=== PATIENT | female | born 1945 | race Caucasian/White ===

== ENCOUNTER 2025-03-17 16:57 | Inpatient (IN) | payer MEDICARE, OTHER, SELFPAY ==
[2025-03-16] VITALS (7 sets, daily range): BP systolic 84–106; BP diastolic 56–71; BMI 29.5; BMI 28.9
[2025-03-16 13:05] LABS: Hematocrit 35.9 % (37.0-47.0); Hemoglobin 11.5 g/dL (12.0-16.0); Mean Corp Hgb Conc. 32.0 g/dL (33.0-37.0); Mean Corpuscular Volume 91.8 fL (81.0-99.0); Nucleated Red Blood Cells % 0 %; Platelet Count 256 10^3/uL (130-400); Red Cell Dist. Width 14.9 % (11.5-14.5)
[2025-03-16 13:29] LABS: ALT (SGPT) 18 U/L (0-35); AST (SGOT) 24 U/L (14-36); Albumin 4.6 g/dl (3.5-5.0); Alkaline Phosphatase 53 U/L (38-126); Blood Urea Nitrogen 47 mg/dl (7-17); Calcium 9.1 mg/dl (8.4-10.2); Carbon Dioxide 20 mmol/L (22-30); Chloride 109 mmol/L (98-107); Glucose 102 mg/dl (70-99); Potassium 5.2 mmol/L (3.5-5.1); Sodium 137 mmol/L (135-145); Total Protein 6.8 g/dl (6.3-8.2); eGFR 34.79
[2025-03-16 13:30] LABS: Troponin I < 0.012 ng/ml
--- NOTE | 2025-03-16 14:54 | ED.GENMED ---
History of Present Illness
General
Chief Complaint: Breathing Problem
Time Seen by Provider: 03/16/25 13:28
History of Present Illness
History of Present Illness:
80-year-old female with history of heart failure with reduced ejection fraction, paroxysmal A-fib status post pacemaker presents the emergency department for evaluation of dyspnea on exertion and orthopnea for the past 2 weeks. She uses diuretics
as needed, began taking 20 mg of furosemide daily for the past 7 to 8 days with improvement of symptoms however she continues to have intermittent chest pain and inability to exert herself without severe dyspnea. Reports no leg swelling and no
fever. No coughing. Scheduled for an A-fib ablation next month
Past History
Past History
ED Past Medical History: Arrthythmia, HTN and Hypercholesterolemia
Social History
Tobacco: Non-smoker
Review of Systems
Review of Systems
Allergies reviewed?: Yes
All Other Systems: ROS reviewed and negative except as documented in HPI and ROS
Phy Exam
Physical Exam
Physical Exam:
GEN: Well appearing, NAD, WDWN
HEENT: Oral mucosa moist, no scleral icterus
Cardiac: Regular rate and rhythm, no murmur
Lung: No respiratory distress, no tachypnea, lungs clear to auscultation
MSK: No gross deformity or injuries, no leg edema
Skin: Good color, no pallor or jaundice, no rashes
Neuro: AO x3, moves all extremities freely
Psych: Calm, cooperative
Scores
Heart Failure Risk
Heart Failure Risk Score: Yes
History of Stroke or TIA: No
History of intubation for respiratory distress: No
Heart rate on ED arrival >/= 110: No
SaO2 <90% on arrival on room air: No
HR >/=110 during 3min walk test (or too ill to perform test): Yes
ECG has acute ischemic changes: No
Urea >/=12mmol/L (BUN 33.6mg/dL): Yes
Serum CO2>/=35mmol/L: No
Troponin I or T elevated to VT Level (0.4mg/dL): No
NT-proBNP >/=5,000ng/L (5,000pg/ml): No
HF Risk Score: 3
Admission Status: HIGH RISK 15.9% Consider SNF treatment or admission to hospital
Course
Orders/Labs/Results
Orders:
Orders
03/16/25 12:37
Electrocardiogram (*1) Urgent
Reason for Study: Other
Other Reason for Exam: Respiratory Distress
EKG- Treatment ONCE
03/16/25 13:00
Complete Blood Count/With Diff Urgent
Comprehensive Metabolic Panel Urgent
NT-proBNP Urgent
Troponin I Urgent
03/16/25 13:38
CR Chest - 2 Views Urgent
Comment:
Reason For Exam: SOB
03/16/25 14:53
Furosemide [Lasix] 20 mg IV NOW STA
Abnormal Lab Results
03/16/25
13:00
RBC 3.91 L 10^6/uL
(4.20-5.40)
Hgb 11.5 L g/dL
(12.0-16.0)
Hct 35.9 L %
(37.0-47.0)
MCHC 32.0 L g/dL
(33.0-37.0)
RDW 14.9 H %
(11.5-14.5)
Abs Immat Gran (auto) 0.1 H 10^3/uL
(0-0.05)
Immature Gran % 0.7 H %
(0-0.5)
Lymphocytes % 17.2 L %
(20.5-51.1)
Potassium 5.2 H mmol/L
(3.5-5.1)
Chloride 109 H mmol/L
(98-107)
Carbon Dioxide 20 L mmol/L
(22-30)
BUN 47 H mg/dl
(7-17)
Creatinine 1.5 H mg/dL
(0.6-1.0)
Glucose 102 H mg/dl
(70-99)
03/16/25 13:00
03/16/25 13:00
Vital Signs
Initial and Last Documented VS:
Initial Vital Signs
Temp Pulse Resp BP Pulse Ox
98.2 F 85 16 106/68 98
03/16/25 12:33 03/16/25 12:33 03/16/25 12:33 03/16/25 12:33 03/16/25 12:33
Last Documented Vital Signs
Temp Pulse Resp BP Pulse Ox
98.2 F 85 18 105/64 100
03/16/25 12:33 03/16/25 15:23 03/16/25 14:45 03/16/25 15:23 03/16/25 14:54
MDM/Problems Addressed
MDM/Problems Addressed:
Device interrogation reviewed with rep from [facility], the patient has been frequently in A-fib over the past several weeks most notably a 2-hour run today. This very well may correlate with her bouts of chest pain. And also potentially provoke
her acute CHF. She does not appear grossly volume overloaded by x-ray or clinical exam however BNP is elevated. Abnormal renal function may be a product of cardiorenal syndrome versus overdiuresis. Given that she is hyperkalemic we will trial a
small dose of IV diuretics, the [facility] [employer] device rep plans to see the patient in hospital to adjust device settings and evaluate the frequent bouts of A-fib more. Will admit to the hospitalist service for further management
Comment
Comment:
EKG independently interpreted by me shows a ventricularly paced rhythm
*Pulse Oximetry
SaO2: 100
Oxygen Mode of Delivery: Room air
Patient hypoxic: no
*Critical Care Note
Total Time (30-74mins, 75-104mins- exclusive of procedures): Not Applicable
ED Attending Note
-
Portions of this chart may have been created with voice recognition software.� Occasional wrong word or��sound alike� substitutions may have occurred due to the inherent limitations of voice recognition software.
Discharge Plan
Departure
Patient Disposition: Admit
Date of Disposition: 03/16/25
Time of Disposition: 15:18
Admit to: Telemetry
Admit to doctor: Radhames
Presentation/result/management discussed w/ accepting MD/DO: Hospitalist
Discharge Problem:
Acute heart failure with reduced ejection fraction (HFrEF), Cardiorenal syndrome
Prescriptions:
No Action
cetirizine 10 MG tablet
10 mg PO DAILY
atorvastatin 10 MG tablet
10 mg PO QPM
furosemide 20 MG tablet
20 mg PO DAILYPRN PRN (Reason: fluid)
Xarelto 20 MG tablet
20 mg PO QPM Qty: 0 0RF
sucralfate [Carafate] 100 mg/mL Suspension
10 ml PO HSPRN PRN (Reason: gerd)
omeprazole 40 mg Capsule,Delayed Release(Dr/Ec)
40 mg PO DAILY
spironolactone 25 mg Tablet
25 mg PO QPM
dicyclomine 10 mg Capsule
10 mg PO ACHS
darifenacin 7.5 mg Tablet Extended Release 24 Hr
7.5 mg PO Q48H
Entresto 24-26 mg Tablet
1 tab PO BID
metoprolol succinate 50 MG tablet extended release 24 hr
50 mg PO BID
amiodarone 200 mg Tablet
200 mg PO DAILY
Referrals:
Rochelle Guadarrama MD [Family Provider]
Interventions
Interventions:
*Risk Screen - Suicide Last Done: 03/16/25 12:33
*General Assessment Last Done: 03/16/25 14:41
*Neglect/Abuse Screening Last Done: 03/16/25 14:41
*ED- Fall Risk Assessment Last Done: 03/16/25 14:41
*ED COVID-19 Vaccine History Last Done: 03/16/25 14:41
ED- Cardiac Assessment Last Done: 03/16/25 14:41
ED- Pulmonary Assessment Last Done: 03/16/25 14:41
Discharge Date and Time
Print Language: LUXEMBOURGISH
[2025-03-16] MEDS: LASIX 20 MG IV (15:23)
--- NOTE | 2025-03-16 15:34 | HPS.HSE ---
Family Physician
-
Family Physician: Rochelle Guadarrama
Chief Complaint
-
exertional dyspnea and orthopnea
History of Present Illness
Patient is a 80-year-old female with past medical history significant for paroxysmal atrial fibrillation, HFrEF, hyperlipidemia and GERD who presented to [facility] ED for evaluation of exertional dyspnea and orthopnea for 1.5-2 weeks. Patient reports she
has had intermittent exertional dyspnea and non-radiating chest pain that has not gotten worse or better but felt she needed evaluation. She reports she generally knows when she is in atrial fibrillation but has not felt like she has been in atrial
fibrillation, although pacer interrogation indicates she has been. Timing of atrial fibrillation today for approximately 2 hours coordinates with symptoms she states. Patient recently was in [place] and returned regarding current intermittent
symptoms. Denies any recent illness, fever, chills, cough, nausea, vomting or changes in bowel or bladder habits.
Medical History
Past Medical History
Past Medical History: Reports Other
Additional Past Medical History:
paroxysmal atrial fibrillation
HFrEF
hyperlipidemia
GERD
Past Surgical History: Reports Other
Additional Past Surgical History:
bilateral knee surgery 06/22/2015
back surgery 06/22/2015
cardioversion 01/26/19
Cardioversion 01/2025
Pacemaker 01/2019
cardiac ablation
appendectomy
Social History
Tobacco: Non-smoker
Alcohol: Occasional
Drug: None
Personal:
Living: Alone
Family History
Family History: Not pertinent
Allergies / Home Medications
Allergies reflects when Allergies were last updated in [employer].
Home Medications with original date entered in [employer]
Allergy/Medication List:
Allergies
Allergy/AdvReac Type Severity Reaction Status Date / Time
oxycodone Allergy Intermediate Unknown Verified 03/16/25 12:31
amoxicillin (From Augmentin) Allergy Mild Rash Verified 03/16/25 12:31
clavulanic acid (From Allergy Mild Rash Verified 03/16/25 12:31
Augmentin)
lisinopril Allergy COUGH Verified 03/16/25 12:31
simvastatin Allergy LEG PAINS Verified 03/16/25 12:31
Home Medications
atorvastatin 10 mg tablet 10 mg PO QPM 07/23/15
cetirizine 10 mg tablet 10 mg PO DAILY 07/23/15
furosemide 20 mg tablet 20 mg PO DAILYPRN PRN fluid 07/23/15
rivaroxaban 20 mg tablet (Xarelto) 20 mg PO QPM ##0 02/18/19
amiodarone 200 mg tablet 200 mg PO DAILY 03/16/25
darifenacin 7.5 mg tablet,extended release 24 hr 7.5 mg PO Q48H 03/16/25
dicyclomine 10 mg capsule 10 mg PO ACHS 03/16/25
metoprolol succinate 50 mg tablet,extended release 24 hr 50 mg PO BID 03/16/25
omeprazole 40 mg capsule,delayed release 40 mg PO DAILY 03/16/25
sacubitril 24 mg-valsartan 26 mg tablet (Entresto) 1 tab PO BID 03/16/25
spironolactone 25 mg tablet 25 mg PO QPM 03/16/25
sucralfate 100 mg/mL oral suspension (Carafate) 10 ml PO HSPRN PRN gerd 03/16/25
Review of Systems
-
History Source: Patient
Constitutional: Reports No Symptoms
EENT: Reports No Symptoms
Respiratory: Reports Other (exertional dyspnea and orthopnea )
Cardiac: Reports Chest Pain (non-radiating ache and burning )
Abdomen/GI: Reports No Symptoms
: Reports No Symptoms
Musculoskeletal: Reports No Symptoms
Skin: Reports No Symptoms
Neurological: Reports No Symptoms
Endocrine: Reports No Symptoms
Hematologic/Lymphatic: Reports No Symptoms
Psych: Reports No Symptoms
Physical Exam
Vital Signs
Vital Signs
Temp Pulse Resp BP Pulse Ox
98.2 F 85 18 105/64 100
03/16/25 12:33 03/16/25 15:23 03/16/25 14:45 03/16/25 15:23 03/16/25 14:54
Physical Exam
General: Well Developed, Well Nourished, No Apparent Distress and Obese
HEENT: NormoCephalic, Moist mucous membranes and Atraumatic
Respiratory: Clear and Non Labored Respirations
Cardiac: S1/S2 and Regular Rhythm
Breast: Deferred by me
GI: Soft, Non Tender, Non Distended and Normal Bowel Sounds; No Organomegaly
Rectal: Deferred by Provider
Genito-urinary: Deferred by me
Musculoskeletal: No Clubbing, No Cyanosis and No Edema
Skin: Warm and IV/Catheter Site
Neuro: Awake, AO x 3 and Nonfocal/grossly intact
Psych: Calm and Intact Judgment/Insight
Laboratory Results
-
03/16/25 13:00
03/16/25 13:00
Laboratory Results
Total Bilirubin 1.2 mg/dl (0.2-1.3) 03/16/25 13:00
AST 24 U/L (14-36) 03/16/25 13:00
ALT 18 U/L (0-35) 03/16/25 13:00
Alkaline Phosphatase 53 U/L (38-126) 03/16/25 13:00
Troponin I < 0.012 ng/ml 03/16/25 13:00
Data Reviewed
-
Diagnostic Radiology: Report Reviewed by me (CXR: No acute disease of the chest. Mild cardiomegaly. Stable)
Medical Tests (Nuc Med, Echo, EKG etc): Report Reviewed by me (EKG: Ventricular-paced rhythm)
Lab Data: Labs Reviewed by me (K+ 5.2, BUN 47, Creat 1.5, eGFR 34.79, pBNP 4480)
Impression/Plan
-
IMPRESSION/PLAN:
#exertional dyspnea and chest pain 2/2 acute on chronic HFrEF vs. cardiorenal syndrome
pBNP 4480
CXR: No acute disease of the chest.
Mild cardiomegaly. Stable
EKG: Ventricular-paced rhythm
- Admit to IVU
- Consult Cardiology
- hold Entresto and spironolactone
- daily weights
- I & Os
- ECHO
#acute kidney injury
K+ 5.2, BUN 47, Creat 1.5, eGFR 34.79
#paroxysmal atrial fibrillation
EKG: Ventricular-paced rhythm
Pacer interrogation: pending
s/p cardiac ablation x2 and pacemaker
- continue amiodarone, metoprolol and Xarelto
#hyperlipidemia
- continue atorvastatin
#GERD
- continue omeprazole
#overactive bladder
- continue darifenacin
Code status: full code
DVT prophylaxis: Xarelto
--- NOTE | 2025-03-16 16:30 | W.PN.UPDATE ---
Update Note
Progress Note Update
This is an addendum to the H&P written by Massiel Zhang on 03/12/2025. �Patient seen and examined independently with [employer].
80-year-old female past medical history of persistent atrial fibrillation status post ablation on Xarelto, nonischemic cardiomyopathy, chronic HFrEF status post biventricular pacemaker, hyperlipidemia, GERD, overactive bladder presenting with
ongoing shortness of breath with occasional chest discomfort with exertion over the past 2 weeks. �No swelling or weight gain. �Scheduled to have ablation in near future.
Labs show creatinine 1.5. �Potassium 5.2. �Cardiac BNP of 4400. �Chest x-ray shows mild cardiomegaly.
Pacemaker was interrogated showing frequent episodes of atrial fibrillation likely the source of her recurrent symptoms. �Clinically patient not volume overloaded although BNP elevated. �She was given 20 IV Lasix in the ER.
Patient also with MORALES and hyperkalemia seems to be secondary to spironolactone and Entresto rather than cardiorenal or overdiuresis. �Will observe after being given 20 IV Lasix given and holding spironolactone and Entresto. May need further
diuresis. �Cardiology consulted.
--- NOTE | 2025-03-16 19:25 | PTCARENOTE ---
Received patient on admission from ED via stretcher; patient able to ambulate to bed without difficulty. Admission questions completed. Vpaced on monitor. Ox3, HRR; denies CP or SOB. Report given to oncoming shift; noted that meds for 18:00 need to
be given as not all on unit.
[2025-03-16] MEDS: XARELTO 20 MG PO (20:24)
[2025-03-16] MEDS: BENTYL 10 MG PO (20:24)
[2025-03-16] MEDS: LIPITOR 10 MG PO (20:24)
[2025-03-16] MEDS: TOPROL XL PO (20:27)
[2025-03-16] MEDS: BENTYL PO (20:28)
[2025-03-16] MEDS: CARAFATE SUSPENSION 1 GM PO (21:21)
[2025-03-17] VITALS (14 sets, daily range): BP systolic 78–103; BP diastolic 42–70; BMI 28.8
--- NOTE | 2025-03-17 06:25 | PTCARENOTE ---
PRN midodrine provided for hypotension. Pt asymptomatic. V-paced on the monitor. Up ad aleksandr to BR, no gi/gu complaints. Denies any pain. on RA. Call moncada and tray table within reach. Pt calls appropriately for assistance.
[2025-03-17 06:30] LABS: Hematocrit 37.7 % (37.0-47.0); Hemoglobin 12.4 g/dL (12.0-16.0); Mean Corp Hgb Conc. 32.9 g/dL (33.0-37.0); Mean Corpuscular Volume 90.6 fL (81.0-99.0); Platelet Count 253 10^3/uL (130-400); Red Cell Dist. Width 14.6 % (11.5-14.5)
[2025-03-17 06:52] LABS: Blood Urea Nitrogen 41 mg/dl (7-17); Calcium 9.1 mg/dl (8.4-10.2); Carbon Dioxide 22 mmol/L (22-30); Chloride 110 mmol/L (98-107); Estimated Creatinine Clearance 36 ml/min; Glucose 92 mg/dl (70-99); HDL Cholesterol 62 mg/dl; LDL Cholesterol, Calculated 93 mg/dl; Potassium 4.6 mmol/L (3.5-5.1); Sodium 139 mmol/L (135-145); Very Low Density Lipoprotein 27 mg/dl (0-30); eGFR 37.80
--- NOTE | 2025-03-17 07:51 | CON.CAR ---
Addendum entered and electronically signed by Odalys Lopez PA-C 03/17/25 14:15:
Discussed echo results with patient. She is agreeable to stay until tomorrow to recheck labs and hopefully resume CM medications. As OP was on Entreso and Spironolactone. Previously was on Farxiga by report but stopped due to UTI. Notes she had
uro/processing assistant procedure after this and has not had any UTIs since that time and would consider re-trialing SGLT2 inhibitor.
Addendum entered and electronically signed by Tunde Durham MD 03/17/25 10:50:
I saw and examined the patient.
The [employer] Application [employer]'s note was reviewed and I agree with the note.
Comment:
GEN: No distress, awake, Ox3
HEENT: supple, anicteric, mmm
LUNGS: CTA, no wheezes/rales
CV: Reg, S1/S2, 1/6 syst LSB, S3+
ABD: soft, BS+, NT/ND
EXT: No edema
NEURO: Gross non-focal
SKIN: No rash
Plan:
80-year-old female with past medical history of paroxysmal fibrillation status post PVI x 2, biventricular pacemaker, chronic heart failure with mild reduced ejection fraction, hypertension, and moderate mitral regurgitation presents with shortness
of breath, fatigue, atrial fibrillation symptoms, and dyspnea on exertion. She was traveling in [place] and felt poorly at that time. She had shortness of breath and some palpitations. She did restart her Lasix at that time but with no
significant improvement. Ultimately she presented to the emergency room for further evaluation. Of note, she has struggled also with thyroid disease. She was placed on methimazole and felt very poorly regarding this. It was then stopped. It is
felt that her amiodarone therapy may be contributing to her thyroid disease as well.
She presents with acute on chronic heart failure with mildly reduced ejection fraction and continued paroxysmal atrial fibrillation.
Will give another dose of Lasix 20 mg IV now. Clinically she feels much improved with diuretic from last night. Will check echocardiogram.
Will continue amiodarone for now to try to maintain sinus rhythm as she does have an ablation scheduled in 2 to 3 weeks. Ideally the goal would be to stop amiodarone after her next ablation if she is able to maintain sinus rhythm. Continue to
follow on telemetry.
Continue Xarelto.
Holding Entresto and spironolactone due to hyperkalemia and creatinine of 1.5. Continue to follow.
Could consider SLG 2 as outpatient. Would hold for now with multiple medication issues.
If she feels well and her echo is stable for possible discharge later today.
Original Note:
Consultation
Consultation Request
Date/Time Consultation Requested: 03/17/2025
Date/Time Consultation Performed: 03/17/2025
Requesting Provider: Dr. Ricci
Performing Provider: Odalys Lopez PA-C for Dr. Durham
Reason for Consultation: CHF, Afib
Medical History
-
History of Present Illness:
HPI: Doris is an 80 year old female with PMH of paroxysmal atrial fibrillation w/ prior PVI x 2, SSS s/p BiV PPM, NICM, chronic HFmrEF, HTN, HLD, and moderate MR. Presented to [facility] ER with SOB and orthopnea. She was recently seen in cardiology
office for evaluation of persistent atrial fibrillation in the setting of hyperthyroidism. She was placed on methimazole and is scheduled for PVI 04/06/2025. She has been up in [place] recently but due to symptoms, decided to come home. In ER,
noted to have MORALES with creat of 1.5. Device checked and although burden low, was in AF at time of evaluation. There was concern for acute heart failure as well with proBNP 4480 and she was given a single dose of IV lasix 20mg in ER. She does not
regularly take lasix at home and weight has actually been downtrending since her last visit. She has no edema. She did note a good response to dose of lasix and had no orthopnea overnight. Feels her breathing is back to baseline. Cardiology
consulted for evaluation given MORALES w/ concern for acute heart failure and Afib.
PMH:
Paroxysmal atrial fibrillation
s/p PVI 07/24/2015
s/p PVI 01/26/2017
Previous sotalol, tikosyn therapy
Chronic amiodarone therapy
Chronic Xarelto anticoagulation
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
h/o RV lead diaphragmatic stim
Chronic HFmrEF
Nonischemic CM, EF 40%
HTN
HLD
Moderate MR by echo 11/2023
Past Medical History
Past Medical History: Other (In HPI)
Past Surgical History: Appendectomy and Orthopedic
Social History
Tobacco: Non-Smoker
Alcohol: Occasional
Drug: None
Personal:
Employment: Retired
Family History
Family History: Reviewed & Not Pertinent
Allergies / Home Medications
Allergy/AdvReac Type Severity Reaction Status Date / Time
oxycodone Allergy Intermediate Unknown Verified 03/16/25 12:31
amoxicillin (From Augmentin) Allergy Mild Rash Verified 03/16/25 12:31
clavulanic acid (From Allergy Mild Rash Verified 03/16/25 12:31
Augmentin)
lisinopril Allergy COUGH Verified 03/16/25 12:31
simvastatin Allergy LEG PAINS Verified 03/16/25 12:31
�Medication �Instructions �Recorded �Confirmed �Type
atorvastatin 10 mg tablet 10 mg PO QPM High Cholesterol 07/23/15 03/16/25 History
cetirizine 10 mg tablet 10 mg PO DAILY Allergies 07/23/15 03/16/25 History
furosemide 20 mg tablet 20 mg PO DAILYPRN PRN fluid 07/23/15 03/16/25 History
amiodarone 200 mg tablet 200 mg PO DAILY Arrhythmia 03/16/25 03/16/25 History
darifenacin 7.5 mg tablet,extended 7.5 mg PO Q48H Urinary Issue 03/16/25 03/16/25 History
release 24 hr
dicyclomine 10 mg capsule 10 mg PO ACHS Gastrointestinal 03/16/25 03/16/25 History
Issue
metoprolol succinate 50 mg 50 mg PO BID Heart Failure 03/16/25 03/16/25 History
tablet,extended release 24 hr
omeprazole 40 mg capsule,delayed 40 mg PO DAILY Gastrointestinal 03/16/25 03/16/25 History
release Issue
rivaroxaban 20 mg tablet (Xarelto) 20 mg PO QPM Blood Clot 03/16/25 03/16/25 History
Prevention/Tx
sacubitril 24 mg-valsartan 26 mg 1 tab PO BID Heart Failure 03/16/25 03/16/25 History
tablet (Entresto)
spironolactone 25 mg tablet 25 mg PO QPM Heart Failure 03/16/25 03/16/25 History
sucralfate 100 mg/mL oral 10 ml PO HSPRN PRN gerd 03/16/25 03/16/25 History
suspension (Carafate)
Review of Systems
-
History Source: Patient
All other systems: Negative unless noted
Physical Exam
Vital Signs
Temp Pulse Resp BP Pulse Ox
97.6 F 85 18 100/68 99
03/17/25 07:11 03/17/25 06:00 03/16/25 17:15 03/17/25 06:00 03/16/25 23:10
Lab Results
03/17/25 05:56
03/17/25 05:56
Troponin I < 0.012 ng/ml 03/16/25 13:00
Wya-G-Xanutecjdbm Pept 4480 pg/ml 03/16/25 13:00
Physical Exam
General: Well Developed, Well Nourished and No Apparent Distress
HEENT: Normocephalic and Moist Mucous Membranes
Respiratory: Clear and Non Labored Respirations
Cardiac: S1/S2, Regular Rhythm and Murmur
Musculoskeletal: No Clubbing, No Cyanosis and No Edema
Skin: Warm and Dry
Neuro: AO x 3 and Nonfocal/Grossly Intact
Psych: Calm
Impression / Plan
-
PCP: Dr. Guadarrama
Ecg Technician: Dr. Shaw
EP: Dr. Becerra
Impression:
Presented with SOB
Concern for acute on chronic HFmrEF
MORALES
Hypotension
Paroxysmal atrial fibrillation
s/p PVI 07/24/2015
s/p PVI 01/26/2017
Previous sotalol, tikosyn therapy
Chronic amiodarone therapy
Chronic Xarelto anticoagulation
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
h/o RV lead diaphragmatic stim
Nonischemic CM, EF 40%
HTN
HLD
Moderate MR by echo 11/2023
Echo 11/25/2023 @[facility]: EF 40%, moderate cLVH, moderate MR
Echo 03/17/2025: Study pending
Plan:
-Presented with SOB, orthopnea. Admitted with concern for acute heart failure and recurrent afib. CXR with no acute disease.
-Given a single dose of IV lasix 20mg in ER and noted good response. Does not take standing dose of lasix as OP.
-Weight has been downtrending since last OV. Down to 189 lbs 03/17.
-Creat noted to be elevated at 1.5 on arrival. Spironolactone and Entresto held. Down to 1.4 this AM.
-Also w/ hypotension overnight, requiring midodrine. Would continue to hold spironolactone and Entresto at this time. BP stable this AM.
-Check echo. Prior echo 11/2023 with EF 40% and moderate MR.
-Device check with AF burden of 1.3%, however AF likely contributing to symptoms. Would continue amiodarone and metoprolol for now.
-She is scheduled for PVI 04/06 w/ Dr. Becerra
-Had been started on methimazole at time of OV 01/2025. Not currently on med list. Check TSH.
-Continue Xarelto for anticoagulation. No bleeding issues noted. No missed doses.
HPI: Doris is an 80 year old female with PMH of paroxysmal atrial fibrillation w/ prior PVI x 2, SSS s/p BiV PPM, NICM, chronic HFmrEF, HTN, HLD, and moderate MR. Presented to [facility] ER with SOB and orthopnea. She was recently seen in cardiology
office for evaluation of persistent atrial fibrillation in the setting of hyperthyroidism. She was placed on methimazole and is scheduled for PVI 04/06/2025. She has been up in [place] recently but due to symptoms, decided to come home. In ER,
noted to have MORALES with creat of 1.5. Device checked and although burden low, was in AF at time of evaluation. There was concern for acute heart failure as well with proBNP 4480 and she was given a single dose of IV lasix 20mg in ER. She does not
regularly take lasix at home and weight has actually been downtrending since her last visit. She has no edema. She did note a good response to dose of lasix and had no orthopnea overnight. Feels her breathing is back to baseline. Cardiology
consulted for evaluation given MORALES w/ concern for acute heart failure and Afib.
Data Reviewed
-
EKG: Tracing Personally Visualized and interpreted
Radiology: Report Reviewed by me
Labs: Labs Reviewed by me
Old Records: Reviewed
[2025-03-17] MEDS: BENTYL 10 MG PO ×4 (08:36→20:45)
[2025-03-17] MEDS: ZYRTEC 10 MG PO (08:36)
[2025-03-17] MEDS: TOPROL XL 50 MG PO (08:36)
[2025-03-17] MEDS: PACERONE 200 MG PO (08:37)
[2025-03-17] MEDS: PROTONIX 40 MG PO (08:37)
--- NOTE | 2025-03-17 08:53 | W.PN.HOSP.TC ---
Today's Communication/Plan
-
monitor renal function
diuresis per cards
transfe to tele
Assessment / Plan
Assessment / Plan
#Acute on chronic HFrEF
-pro-BNP 4480
-CXR: No acute disease of the chest.
Mild cardiomegaly. Stable
-EKG: Ventricular-paced rhythm
-Got IV lasix 20mg in ER, continue further dosing per cardio
-hold Entresto and spironolactone
-TTE pending
-f/u weight/cr
#MORALES
Mild hyperkalemia
-cr elevated to 1.5
-Potassium will trend down with diuresis
# Paroxysmal atrial fibrillation
-EKG: Ventricular-paced rhythm
-Pacer interrogation: pending
-s/p cardiac ablation x2 and pacemaker
-continue amiodarone, metoprolol and Xarelto
#hyperlipidemia
- continue atorvastatin
#GERD
- continue omeprazole
#overactive bladder
- continue darifenacin
Code status: full code
DVT prophylaxis: Xarelto
Total time spent : 51 mins
Anticipated Discharge: Within 24 hours
Subjective/Interval History
-
Date of Service: March 17, 2025
shortness breath is better
denies palpitation/chest discomfort
no cough
Objective Data
-
Labs:
Laboratory Results
03/17/25
05:56
WBC 7.0
Hgb 12.4
Hct 37.7
Plt Count 253
Sodium 139
Potassium 4.6
Chloride 110 H
Carbon Dioxide 22
BUN 41 H
Creatinine 1.4 H
Glucose 92
Calcium 9.1
Vital Signs:
Vital Signs
Temp Pulse Resp BP Pulse Ox
97.6 F 85 18 102/67 99
03/17/25 07:11 03/17/25 08:37 03/16/25 17:15 03/17/25 08:37 03/16/25 23:10
I&O
03/16/25 03/17/25 03/18/25
06:59 06:59 06:59
Intake Total 240 / 240
Output Total 775 / 775
Balance -535 / -535
Review of Systems
-
Respiratory: Denies Cough
Cardiac: Reports No Symptoms
Abdomen/GI: Reports No Symptoms
Physical Exam
-
General: No Apparent Distress and Comfortable
HEENT: Negative Oxygen
Respiratory: Clear to Auscultation
Cardiac: Regular Rhythm and S1/S2; Negative Murmur or Rub
GI: Soft and Nontender
Musculoskeletal: No Edema
Neuro: Awake, Alert, Oriented, No Motor Deficits and Nonfocal/Grossly Intact
Psych: Calm
[2025-03-17 09:08] LABS: Glycohemoglobin (HgbA1c) 5.7 % (4.0-5.6)
--- NOTE | 2025-03-17 10:06 | PTCARENOTE ---
On walking rounds pt ia AAOx3 reading her HF booklet lungs are diminshed awaiting Echo
[2025-03-17] MEDS: LASIX 20 MG IV (10:53)
[2025-03-17] MEDS: CARAFATE SUSPENSION 1 GM PO ×2 (12:27→20:45)
--- NOTE | 2025-03-17 15:39 | PTCARENOTE ---
Pt got up to b\BR and walking back felt dizzy BP 78/65 given Midodrine 5 mg as ordered bp now 95/61 Pt asked to call for help before going to BR
--- NOTE | 2025-03-17 16:11 | PTCARENOTE ---
Pt OOB to BR and walking back BP dropped tp 88/51 Pt asked to stay in bed she refuses to use a bed diane I told her i would get her a BSC she was agreeable to that . Pt IMU at this time
[2025-03-17] MEDS: CARAFATE SUSPENSION PO (16:30)
--- NOTE | 2025-03-17 16:52 | CM ---
Patient with Dx HF, PAF, MORALES. Room air. Telemetry - Vpaced per nurse. Per nurse; assist of 1 OOB/steady gait.
Spoke with patient who resides alone in a 2 story house with 2 JAMILAH and first floor bedroom/bath.
The patient was independent in ADLs and ambulation.
She is active and drives.
DME - [facility], [facility]
No prior VN
PCP - Rochelle Guadarrama
Pharmacy - [facility]
A family member will provide transport home.
Offered VN and patient declined.
No CM d/c needs identified.
Plan home.
[2025-03-17] MEDS: LIPITOR 10 MG PO (17:57)
[2025-03-17] MEDS: XARELTO 15 MG PO (17:58)
[2025-03-17] MEDS: TOPROL XL PO (20:44)
[2025-03-17] MEDS: MELATONIN 5 MG PO (21:06)
--- NOTE | 2025-03-17 21:49 | PTCARENOTE ---
Patient aao x3 since start of shift. BPs soft, denies symptoms. Patient using call moncada appropriately and verbalizes understanding to call for assist oob to bsc as needed. Remains 100% v-paced, positive pp b/l. Patient states she takes melatonin and
tylenol pm q hs at home and requests medication to assist with sleep. RN contacted BINDER STRIPPER MACHINE, order place for Melatonin 5mg po. Administered per order. Call moncada within reach, will continue to monitor patient closely.
[2025-03-18] VITALS (11 sets, daily range): BP systolic 90–113; BP diastolic 55–102
[2025-03-18 04:41] LABS: Hematocrit 35.9 % (37.0-47.0); Hemoglobin 12.1 g/dL (12.0-16.0); Mean Corp Hgb Conc. 33.7 g/dL (33.0-37.0); Mean Corpuscular Volume 89.1 fL (81.0-99.0); Platelet Count 254 10^3/uL (130-400); Red Cell Dist. Width 14.6 % (11.5-14.5)
[2025-03-18 05:05] LABS: Blood Urea Nitrogen 45 mg/dl (7-17); Calcium 8.9 mg/dl (8.4-10.2); Carbon Dioxide 21 mmol/L (22-30); Chloride 109 mmol/L (98-107); Estimated Creatinine Clearance 32 ml/min; Glucose 95 mg/dl (70-99); Potassium 4.2 mmol/L (3.5-5.1); Sodium 138 mmol/L (135-145); eGFR 32.20
[2025-03-18] MEDS: ZYRTEC 10 MG PO (08:20)
[2025-03-18] MEDS: TOPROL XL PO (08:21)
[2025-03-18] MEDS: PROTONIX 40 MG PO (08:21)
[2025-03-18] MEDS: BENTYL 10 MG PO ×4 (08:21→21:00)
[2025-03-18] MEDS: PACERONE 200 MG PO (08:22)
--- NOTE | 2025-03-18 08:22 | W.PN.HOSP.TC ---
Today's Communication/Plan
-
Blood pressure remains soft
Toprol will need to be held as well
Await cardio input
Assessment / Plan
Assessment / Plan
#Acute on chronic HFrEF
- pro-BNP 4480
- CXR: No acute disease of the chest.
Mild cardiomegaly. Stable
- EKG: Ventricular-paced rhythm
- Got IV lasix 20mg in ER, continue further dosing per cardio
- hold Entresto and spironolactone
- TTE showing EF 35% with grade II diastolic dysfunction
- Patient blood pressure remains soft but systolic blood pressure in 100. Toprol-XL 50 mg twice daily also needs to be held
- Patient required dose of midodrine yesterday
#MORALES
Mild hyperkalemia
- cr elevated to 1.5, no previous lab and last creatinine 2019 was normal 0.7
- Potassium will trend down with diuresis
# Paroxysmal atrial fibrillation
- EKG: Ventricular-paced rhythm
- Pacer interrogation: pending
- s/p cardiac ablation x2 and pacemaker
- continue amiodarone, metoprolol and Xarelto
#hyperlipidemia
- continue atorvastatin
#GERD
- continue omeprazole
#overactive bladder
- continue darifenacin
Code status: full code
DVT prophylaxis: Xarelto
Anticipated Discharge: Within 24 hours
Subjective/Interval History
-
Date of Service: March 18, 2025
No complaints overnight
Denies of having any problem
Blood pressure remains soft
Objective Data
-
Labs:
Laboratory Results
03/18/25
04:24
WBC 7.7
Hgb 12.1
Hct 35.9 L
Plt Count 254
Sodium 138
Potassium 4.2
Chloride 109 H
Carbon Dioxide 21 L
BUN 45 H
Creatinine 1.6 H
Glucose 95
Calcium 8.9
Vital Signs:
Vital Signs
Temp Pulse Resp BP Pulse Ox
97.4 F 85 18 90/59 97
03/18/25 07:00 03/18/25 06:00 03/16/25 17:15 03/18/25 06:00 03/18/25 04:11
I&O
03/17/25 03/18/25 03/19/25
06:59 06:59 06:59
Intake Total 240 / 240
Output Total 775 / 775 550 / 550
Balance -535 / -535 -550 / -550
Review of Systems
-
Respiratory: Reports No Symptoms
Cardiac: Reports No Symptoms
Abdomen/GI: Reports No Symptoms
Physical Exam
-
General: No Apparent Distress and Comfortable
HEENT: Negative Oxygen
Respiratory: Clear to Auscultation
Cardiac: Regular Rhythm and S1/S2; Negative Murmur or Rub
GI: Soft and Nontender
Musculoskeletal: No Edema
Neuro: Awake, Alert, Oriented, No Motor Deficits and Nonfocal/Grossly Intact
Psych: Calm
[2025-03-18] MEDS: CARAFATE SUSPENSION 1 GM PO ×4 (08:23→21:00)
--- NOTE | 2025-03-18 08:44 | PTCARENOTE ---
Pt is AAOx3 request carafate for painful stomach, pt wants to go home.
--- NOTE | 2025-03-18 08:55 | W.PN.CARDCBS ---
Addendum entered and electronically signed by Paco Owusu DO 03/18/25 12:18:
I saw and examined the patient.
The Salesforce Trainer's note was reviewed and I agree with the note.
Comment:
Plan:
Wt is stable and she felt improved after the lasix she took on her own.
-Weight is stable at 189 lbs on 03/18/2025.
-Patient was taking Lasix 20 mg daily PRN weight gain or edema prior to admission and took a dose while her daughter was driving her from [place] to [facility] and noted symptomatic improvement prior to admission
Patient reports she has known CKD, but unaware of her baseline Cre.
Cre was 1.5 on 03/16/2025, then down to 1.4 on 03/17/2025 and now up to 1.6 on 03/18/2025.
Cont to monitor cr for improvement.
If cr continues to worsen may need consideration for right heart cath to better determine volume status
She is not enthusiastic about staying in hospital but was agreeable to stay today.
Entresto and aldactone held for hypotension
Will hold Toprol for now and resume at lower dose of 25 mg daily tomorrow if bp stable
Patient was not previously on SGLT2 inhibitor due to h/o UTI
Patient with known paroxysmal A-fib and previous PVI in 2014 and 2016. Patient is currently scheduled for her third PVI on 04/06/2025.
-Pt will need follow up in our office prior to repeat PVI
Outpatient dose of Xarelto decreased to 15 mg given MORALES.
Patient was taking methimazole for hyperthyroidism and stopped taking due to intolerance. She is following with endocrinology at [facility].
-Device check with AF burden of 1.3%, however AF likely contributing to symptoms.
-Would continue amiodarone and metoprolol for now.
Original Note:
Today's Communication / Plan
-
Weight unchanged at 189 lbs today and Cre up a bit to 1.6, no additional Lasix today, Entresto and spironolactone on hold
Hypotensive on VS, Toprol-XL being decreased
Recommended patient ongoing hospitalization with repeat labs and checking a volume status in a.m., if no improvement and ongoing concerns about volume status would consider RHC
Patient is considering her options, certainly her upcoming ablation has to be factored in, patient would not be a suitable candidate for elective ablation if she was in an acute HF
Impression / Plan
-
PCP: Dr. Guadarrama
Major Appliance Assembly Supervisor: Dr. Shaw
EP: Dr. Becerra
Impression:
Presented with SOB
Concern for acute on chronic HFmrEF
MORALES
Hypotension
Paroxysmal atrial fibrillation
s/p PVI 07/24/2015
s/p PVI 01/26/2017
Previous sotalol, Tikosyn therapy
Chronic amiodarone therapy
Chronic Xarelto anticoagulation
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
h/o RV lead diaphragmatic stim
Nonischemic CM, EF 40% by echo 11/25/2023 and down to 35 to 40% by echo 03/17/2025
HTN
HLD
Moderate MR by echo 11/2023 increased to moderate to severe MR by echo 03/17/2025
Echo 11/25/2023 @[facility]: EF 40%, moderate cLVH, moderate MR
Echo 03/17/2025: EF 35%, moderate global hypokinesis, stage II diastolic dysfunction, normal RV size with low normal RV systolic function, moderate to severe MR, mild TR
Plan:
-Weight is stable at 189 lbs on 03/18/2025. Patient reports increased urine output, but nursing notes overall increase in frequency but only voiding small amounts of about 50 to 100 mL at a time.
-Patient was taking Lasix 20 mg daily PRN weight gain or edema prior to admission and took a dose while her daughter was driving her from [place] to [facility] and noted that in that time she had increased urine output and symptomatic improvement
prior to admission and since admission no appreciable improvement
-Patient reports she has known CKD, but unaware of her baseline Cre. Cre was 1.5 on 03/16/2025, then down to 1.4 on 03/17/2025 and now up to 1.6 on 03/18/2025, all labs reviewed by me.
-Reviewed with patient that with worsening Cre and acute HF that there may be a role for RHC to better determine volume status. Recommended ongoing admission with repeat labs in a.m. Patient is considering staying vs requesting discharge to home
which would be AMA. At this point patient is considering her options. Reviewed with nursing as well.
-Outpatient dose of Toprol-XL 50 mg BID was continued on admission, but BP down to 100/73 on VS reviewed by me so decrease Toprol-XL to 25 mg daily, orders placed by me
-Outpatient dose of Entresto 24/26 mg BID is on hold due to MORALES and hypotension
-Outpatient dose of spironolactone 25 mg daily is on hold due to MORALES and hypotension
-Patient was not previously on SGLT2 inhibitor due to h/o UTI, but no recent UTI.
-Patient with known paroxysmal A-fib and previous PVI in 2014 and 2016. Patient is currently scheduled for her third PVI on 04/06/2025, PVI will not be performed if patient is in acute HF which was another reason we recommended patient stay for
treatment. Regardless patient will need to be seen in the office prior to her PVI on 04/06/2025.
-Outpatient dose of Xarelto decreased to 15 mg given MORALES.
-Patient was taking methimazole for hyperthyroidism and stopped taking due to intolerance. She is following with endocrinology at [facility].
-Device check with AF burden of 1.3%, however AF likely contributing to symptoms. Would continue amiodarone and metoprolol for now.
HPI: Doris is an 80 year old female with PMH of paroxysmal atrial fibrillation w/ prior PVI x 2, SSS s/p BiV PPM, NICM, chronic HFmrEF, HTN, HLD, and moderate MR. Presented to [facility] ER with SOB and orthopnea. She was recently seen in cardiology
office for evaluation of persistent atrial fibrillation in the setting of hyperthyroidism. She was placed on methimazole and is scheduled for PVI 04/06/2025. She has been up in [place] recently but due to symptoms, decided to come home. In ER,
noted to have MORALES with creat of 1.5. Device checked and although burden low, was in AF at time of evaluation. There was concern for acute heart failure as well with proBNP 4480 and she was given a single dose of IV lasix 20mg in ER. She does not
regularly take lasix at home and weight has actually been downtrending since her last visit. She has no edema. She did note a good response to dose of lasix and had no orthopnea overnight. Feels her breathing is back to baseline. Cardiology
consulted for evaluation given MORALES w/ concern for acute heart failure and Afib.
Progress Note - Major Appliance Assembly Supervisor
Subjective
Date of Service: March 18, 2025
She thinks she is doing quite well although no marked symptomatic improvement in the last 24 hours
Objective
Labs:
03/18/25 04:24
03/18/25 04:24
Labs
Hgb 12.1 g/dL (12.0-16.0) 03/18/25 04:24
Hct 35.9 % (37.0-47.0) L 03/18/25 04:24
Plt Count 254 10^3/uL (130-400) 03/18/25 04:24
Sodium 138 mmol/L (135-145) 03/18/25 04:24
Potassium 4.2 mmol/L (3.5-5.1) 03/18/25 04:24
BUN 45 mg/dl (7-17) H 03/18/25 04:24
Creatinine 1.6 mg/dL (0.6-1.0) H 03/18/25 04:24
Glucose 95 mg/dl (70-99) 03/18/25 04:24
Troponins
03/16/25
13:00
Troponin I < 0.012
Vital Signs and I&O:
Vital Signs
Temp Pulse Resp BP Pulse Ox
97.4 F 85 18 100/73 97
03/18/25 07:00 03/18/25 08:22 03/16/25 17:15 03/18/25 08:22 03/18/25 04:11
Vital Signs
Temp Pulse Resp BP Pulse Ox
97.4 F 85 18 100/73 97
03/18/25 07:00 03/18/25 08:22 03/16/25 17:15 03/18/25 08:22 03/18/25 04:11
Intake & Output
03/16/25 03/17/25 03/18/25 03/19/25
06:59 06:59 06:59 06:59
Intake Total 240 / 240
Output Total 775 / 775 550 / 550
Balance -535 / -535 -550 / -550
Physical Exam
Physical Exam
GEN: AAOx3
HEENT: EOMI, MMM, wearing glasses
LUNGS: RA. No audible wheeze
CV: V paced.
EXT: No edema B/L
[2025-03-18] MEDS: LIPITOR 10 MG PO (17:13)
[2025-03-18] MEDS: XARELTO 15 MG PO (17:13)
[2025-03-18] MEDS: MELATONIN 5 MG PO (22:15)
--- NOTE | 2025-03-18 23:12 | PTCARENOTE ---
Pt requested melatonin for difficulty sleeping, states that she takes it at home PRN. LIBERAL ARTS TEACHER contacted and medication given per OCT. Pt denies new complaints at this time. Call moncada within reach. Pt ringing appropriately.
[2025-03-19] VITALS: BP 103/66
[2025-03-19 02:00] VITALS: BP 96/74
[2025-03-19 04:01] VITALS: BP 104/62
[2025-03-19 05:08] VITALS: BMI 28.8
[2025-03-19 05:40] LABS: Hematocrit 36.1 % (37.0-47.0); Hemoglobin 11.9 g/dL (12.0-16.0); Mean Corp Hgb Conc. 33.0 g/dL (33.0-37.0); Mean Corpuscular Volume 88.5 fL (81.0-99.0); Platelet Count 250 10^3/uL (130-400); Red Cell Dist. Width 14.5 % (11.5-14.5)
[2025-03-19 06:00] VITALS: BP 107/72
[2025-03-19 06:01] LABS: Blood Urea Nitrogen 44 mg/dl (7-17); Calcium 9.3 mg/dl (8.4-10.2); Carbon Dioxide 21 mmol/L (22-30); Chloride 110 mmol/L (98-107); Estimated Creatinine Clearance 34 ml/min; Glucose 96 mg/dl (70-99); Potassium 4.3 mmol/L (3.5-5.1); Sodium 138 mmol/L (135-145); eGFR 34.79
[2025-03-19 08:00] VITALS: BP 117/63
[2025-03-19] MEDS: BENTYL 10 MG PO ×2 (08:30→11:23)
[2025-03-19] MEDS: PROTONIX 40 MG PO (08:30)
[2025-03-19] MEDS: CARAFATE SUSPENSION 1 GM PO ×2 (08:30→11:23)
[2025-03-19] MEDS: TOPROL XL 25 MG PO (08:30)
[2025-03-19] MEDS: PACERONE 200 MG PO (08:31)
[2025-03-19] MEDS: ZYRTEC 10 MG PO (08:31)
--- NOTE | 2025-03-19 08:38 | W.PN.CARDCBS ---
Today's Communication / Plan
-
Wt remain stable and she felt improved after the lasix she took on her own.
-Patient was taking Lasix 20 mg daily PRN weight gain or edema prior to admission and took a dose while her daughter was driving her from [place] to [facility] and noted symptomatic improvement prior to admission
Patient reports she has known CKD, but unaware of her baseline Cre.
-cr improving.
-check BMP as outpt in next week.
Entresto and aldactone held for hypotension, continue to hold until seen in office.
Continue lower dose Toprol 25 mg daily
-Patient was not previously on SGLT2 inhibitor due to h/o UTI
Patient with known paroxysmal A-fib and previous PVI in 2014 and 2016. Patient is currently scheduled for her third PVI on 04/06/2025.
-Pt will need follow up in our office prior to repeat PVI
-Outpatient dose of Xarelto, resume dosing with normal renal function.
Patient was taking methimazole for hyperthyroidism and stopped taking due to intolerance. She is following with endocrinology at [facility].
-Device check with AF burden of 1.3%, however AF likely contributing to symptoms.
-Would continue amiodarone and metoprolol for now.
Discussed with primary service and nursing
Pt is very enthusiastic about d/c
Will arrange outpt follow up and call tomorrow with appt.
Impression / Plan
-
PCP: Dr. Guadarrama
Continuous Wave Operator: Dr. Shaw
EP: Dr. Becerra
Impression:
Presented with SOB
Concern for acute on chronic HFmrEF
MORALES
Hypotension
Paroxysmal atrial fibrillation
s/p PVI 07/24/2015
s/p PVI 01/26/2017
Previous sotalol, Tikosyn therapy
Chronic amiodarone therapy
Chronic Xarelto anticoagulation
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
h/o RV lead diaphragmatic stim
Nonischemic CM, EF 40% by echo 11/25/2023 and down to 35 to 40% by echo 03/17/2025
HTN
HLD
Moderate MR by echo 11/2023 increased to moderate to severe MR by echo 03/17/2025
Echo 11/25/2023 @[facility]: EF 40%, moderate cLVH, moderate MR
Echo 03/17/2025: EF 35%, moderate global hypokinesis, stage II diastolic dysfunction, normal RV size with low normal RV systolic function, moderate to severe MR, mild TR
Plan:
Wt remain stable and she felt improved after the lasix she took on her own.
-Patient was taking Lasix 20 mg daily PRN weight gain or edema prior to admission and took a dose while her daughter was driving her from [place] to [facility] and noted symptomatic improvement prior to admission
Patient reports she has known CKD, but unaware of her baseline Cre.
-cr improving.
-check BMP as outpt in next week.
Entresto and aldactone held for hypotension, continue to hold until seen in office.
Continue lower dose Toprol 25 mg daily
-Patient was not previously on SGLT2 inhibitor due to h/o UTI
Patient with known paroxysmal A-fib and previous PVI in 2014 and 2016. Patient is currently scheduled for her third PVI on 04/06/2025.
-Pt will need follow up in our office prior to repeat PVI
-Outpatient dose of Xarelto, resume dosing with normal renal function.
Patient was taking methimazole for hyperthyroidism and stopped taking due to intolerance. She is following with endocrinology at [facility].
-Device check with AF burden of 1.3%, however AF likely contributing to symptoms.
-Would continue amiodarone and metoprolol for now.
Discussed with primary service and nursing
Pt is very enthusiastic about d/c
Will arrange outpt follow up and call tomorrow with appt.
HPI: Doris is an 80 year old female with PMH of paroxysmal atrial fibrillation w/ prior PVI x 2, SSS s/p BiV PPM, NICM, chronic HFmrEF, HTN, HLD, and moderate MR. Presented to [facility] ER with SOB and orthopnea. She was recently seen in cardiology
office for evaluation of persistent atrial fibrillation in the setting of hyperthyroidism. She was placed on methimazole and is scheduled for PVI 04/06/2025. She has been up in [place] recently but due to symptoms, decided to come home. In ER,
noted to have MORALES with creat of 1.5. Device checked and although burden low, was in AF at time of evaluation. There was concern for acute heart failure as well with proBNP 4480 and she was given a single dose of IV lasix 20mg in ER. She does not
regularly take lasix at home and weight has actually been downtrending since her last visit. She has no edema. She did note a good response to dose of lasix and had no orthopnea overnight. Feels her breathing is back to baseline. Cardiology
consulted for evaluation given MORALES w/ concern for acute heart failure and Afib.
Progress Note - Continuous Wave Operator
Subjective
Date of Service: March 19, 2025
Pt seen and examined. No cp or dyspnea.
Objective
Labs:
03/19/25 05:20
03/19/25 05:20
Labs
Hgb 11.9 g/dL (12.0-16.0) L 03/19/25 05:20
Hct 36.1 % (37.0-47.0) L 03/19/25 05:20
Plt Count 250 10^3/uL (130-400) 03/19/25 05:20
Sodium 138 mmol/L (135-145) 03/19/25 05:20
Potassium 4.3 mmol/L (3.5-5.1) 03/19/25 05:20
BUN 44 mg/dl (7-17) H 03/19/25 05:20
Creatinine 1.5 mg/dL (0.6-1.0) H 03/19/25 05:20
Glucose 96 mg/dl (70-99) 03/19/25 05:20
Troponins
03/16/25
13:00
Troponin I < 0.012
Vital Signs and I&O:
Vital Signs
Temp Pulse Resp BP Pulse Ox
97.5 F 85 18 107/72 98
03/19/25 03:00 03/19/25 06:00 03/16/25 17:15 03/19/25 06:00 03/18/25 21:16
Vital Signs
Temp Pulse Resp BP Pulse Ox
97.5 F 85 18 107/72 98
03/19/25 03:00 03/19/25 06:00 03/16/25 17:15 03/19/25 06:00 03/18/25 21:16
Intake & Output
03/17/25 03/18/25 03/19/25 03/20/25
06:59 06:59 06:59 06:59
Intake Total 240 / 240
Output Total 775 / 775 550 / 550
Balance -535 / -535 -550 / -550
Physical Exam
Physical Exam
General: No acute distress, AAOX3
Neck: Negative JVD
Heart: Regular, Negative S3 positive S1/S2, Negative S4, No murmur
Lungs: CTA b/l, negative wheezes/rales/rhonchi
Abd: Positive BS, NT/ND, neg rebound/rigidity/guarding
Ext: Negative cyanosis/clubbing/edema
Neuro: nonfocal
--- NOTE | 2025-03-19 09:33 | W.PN.HOSP.TC ---
Today's Communication/Plan
-
Being discharged today.
Assessment / Plan
Assessment / Plan
80 year old woman with a PMH of:
paroxysmal atrial fibrillation w/ prior PVI x 2,
SSS s/p BiV PPM,
NICM,
chronic HFmrEF,
HTN,
HLD,
moderate MR.
Presented to [facility] ER with SOB and orthopnea. She was recently seen in cardiology office for evaluation of persistent atrial fibrillation in the setting of hyperthyroidism. She was placed on methimazole and is scheduled for PVI 04/06/2025. She has
been up in [place] recently but due to symptoms, decided to come home. In ER, noted to have MORALES with creat of 1.5. Device checked and although burden low, was in AF at time of evaluation. There was concern for acute heart failure as well with
proBNP 4480 and she was given a single dose of IV lasix 20mg in ER. She does not regularly take lasix at home and weight has actually been downtrending since her last visit. She has no edema. She did note a good response to dose of lasix and had no
orthopnea overnight. Feels her breathing is back to baseline. Cardiology was consulted for evaluation given MORALES w/ concern for acute heart failure and Afib.
1. Acute on chronic HFrEF - improved
- pro-BNP 4480
- CXR: No acute disease of the chest.
Mild cardiomegaly. Stable
- EKG: Ventricular-paced rhythm
- Got IV lasix 20mg in ER, continue further dosing per cardio
- hold Entresto and spironolactone per cardiology rec.
- TTE showing EF 35% with grade II diastolic dysfunction
- Patient blood pressure remains soft but systolic blood pressure in 100.
Toprol-XL 50 mg twice daily also needed to be held
Other BP meds such as entresto and aldactone also held
- Patient required dose of midodrine
- Cardiology agrees with plan to dc today, patient also agrees with this
- outpatient cardiology consult needed aileen after discharge
2. MORALES with Mild hyperkalemia
- cr elevated to 1.5, no previous lab and last creatinine 2019 was normal 0.7
- Potassium will trend down with diuresis, today 4.3
3. Paroxysmal atrial fibrillation
- EKG: Ventricular-paced rhythm
- Pacer interrogation: pending
- s/p cardiac ablation x2 and pacemaker
- continue amiodarone, metoprolol and Xarelto (dose adjusted)
4. hyperlipidemia
- continue atorvastatin
5. GERD
- continue omeprazole
6. overactive bladder
- continue darifenacin
Code status: full code
DVT prophylaxis: Xarelto
Anticipated Discharge: Today
Subjective/Interval History
-
Date of Service: March 19, 2025
Feels better today and wants to go home.
Objective Data
-
Labs:
Laboratory Results
03/19/25
05:20
WBC 8.2
Hgb 11.9 L
Hct 36.1 L
Plt Count 250
Sodium 138
Potassium 4.3
Chloride 110 H
Carbon Dioxide 21 L
BUN 44 H
Creatinine 1.5 H
Glucose 96
Calcium 9.3
Vital Signs:
Vital Signs
Temp Pulse Resp BP Pulse Ox
97.5 F 85 18 107/72 98
03/19/25 03:00 03/19/25 06:00 03/16/25 17:15 03/19/25 06:00 03/18/25 21:16
I&O
03/18/25 03/19/25 03/20/25
06:59 06:59 06:59
Output Total 550 / 550
Balance -550 / -550
Review of Systems
-
History Source: Patient
All other systems: Reviewed and negative
Physical Exam
-
General: Well Developed, Well Nourished, No Apparent Distress, Comfortable and Conversant
HEENT: Normocephalic, Atraumatic, Nose Appears Normal and Ears Appear Normal
Respiratory: Rhonchi
Cardiac: Regular Rhythm and S1/S2
GI: Soft, Nontender and Nondistended
Musculoskeletal: No Clubbing, No Cyanosis and No Edema
Skin: Warm and Dry
Neuro: Awake, Alert and Oriented
Psych: Calm
Data Reviewed
-
Labs: Labs Reviewed by me
--- NOTE | 2025-03-19 09:44 | W.DCSUMMARY ---
Discharge Summary
Discharge Data
Date of Admission: 03/17/25
Date of Discharge: 03/19/25
-
Pending Results: No
Hospital Course
80 year old woman with a PMH of
Conditions prior to admit:
paroxysmal atrial fibrillation w/ prior PVI x 2,
SSS s/p BiV PPM,
NICM,
chronic HFmrEF,
HTN,
HLD,
moderate MR.
Initial presentation and Hospital Course by problem:
80 year old woman presented to [facility] ER with SOB and orthopnea. She was recently seen in cardiology office for evaluation of persistent atrial fibrillation in the setting of hyperthyroidism. She was placed on methimazole and is scheduled for PVI
04/06/2025. She has been up in [place] recently but due to symptoms, decided to come home. In ER, noted to have MORALES with creat of 1.5. Device checked and although burden low, was in AF at time of evaluation. There was concern for acute heart
failure as well with proBNP 4480 and she was given a single dose of IV lasix 20mg in ER. She does not regularly take lasix at home and weight has actually been downtrending since her last visit. She has no edema. She did note a good response to dose
of lasix and had no orthopnea overnight. Feels her breathing is back to baseline. Cardiology was consulted for evaluation given MORALES w/ concern for acute heart failure and Afib.
1. Acute on chronic HFrEF - improved
- pro-BNP 4480
- CXR: No acute disease of the chest.
Mild cardiomegaly. Stable
- EKG: Ventricular-paced rhythm
- Got IV lasix 20mg in ER, continue further dosing per cardio
- hold Entresto and spironolactone per cardiology rec.
- TTE showing EF 35% with grade II diastolic dysfunction
- Patient blood pressure remains soft but systolic blood pressure in 100.
Toprol-XL 50 mg twice daily was adjusted
Other BP meds such as entresto and aldactone also held
- Patient required dose of midodrine
- Cardiology agrees with plan to dc today, patient also agrees with this
- outpatient cardiology consult needed aileen after discharge
Cardiology comments at time of discharge:
Wt remain stable and she felt improved after the lasix she took on her own.
-Patient was taking Lasix 20 mg daily PRN weight gain or edema prior to admission and took a dose while her daughter was driving her from [place] to [facility] and noted symptomatic improvement prior to admission
Patient reports she has known CKD, but unaware of her baseline Cre.
-cr improving.
-check BMP as outpt in next week.
Entresto and aldactone held for hypotension, continue to hold until seen in office.
Continue lower dose Toprol 25 mg daily
-Patient was not previously on SGLT2 inhibitor due to h/o UTI
Patient with known paroxysmal A-fib and previous PVI in 2014 and 2016. Patient is currently scheduled for her third PVI on 04/06/2025.
-Pt will need follow up in our office prior to repeat PVI
-Outpatient dose of Xarelto, resume dosing with normal renal function.
Patient was taking methimazole for hyperthyroidism and stopped taking due to intolerance. She is following with endocrinology at [facility].
-Device check with AF burden of 1.3%, however AF likely contributing to symptoms.
-Would continue amiodarone and metoprolol for now.
Will arrange outpt follow up and call tomorrow with appt.
2. MORALES with Mild hyperkalemia - improving
- cr elevated to 1.5, no previous lab and last creatinine 2019 was normal 0.7
- Potassium will trend down with diuresis, today 4.3
Check BMP early next week
3. Paroxysmal atrial fibrillation - continues
- EKG: Ventricular-paced rhythm
- s/p cardiac ablation x2 and pacemaker
- continue amiodarone, metoprolol and Xarelto (see comments by cardiology above)
4. hyperlipidemia - stable
- continue atorvastatin
5. GERD - stable
- continue omeprazole
6. overactive bladder - stable
- continue darifenacin
Code status during hospitalization: full code
DVT prophylaxis while in hospital: Xarelto
Discharge Plan
-
Patient Disposition: Home (Routine Discharge)
Discharge Diagnosis/Procedures: Heart failure, acute kidney injury, hyperkalemia, atrial fibrilation, hyperlipidemia, GERD, overactive bladder
Diet: 2 Gram Sodium and Restrict fluids to 48 oz
Activity: As tolerated
Driving Restrictions: As prior to admission
Blood Work: BMP as soon as possible after discharge
Specialty Instructions: Weigh Daily- Call MD for wt gain/loss 3 lbs overnight/5 lbs in 1 week
Referrals:
Chris Becerra MD [Active, Cardiology]
Referral Note: Dr. Becerra's office will arrange for a hospital follow-up appointment prior to your scheduled ablation on 04/06/2025, we will call you with that appointment.
Rochelle Guadarrama MD [Family Provider]
Prescriptions:
New
metoprolol succinate 25 mg Tablet Extended Release 24 Hr
25 mg PO DAILY Qty: 30 0RF
Continued
cetirizine 10 MG tablet
10 mg PO DAILY
atorvastatin 10 MG tablet
10 mg PO QPM
furosemide 20 MG tablet
20 mg PO DAILYPRN PRN (Reason: fluid)
sucralfate [Carafate] 100 mg/mL Suspension
10 ml PO HSPRN PRN (Reason: gerd)
omeprazole 40 mg Capsule,Delayed Release(Dr/Ec)
40 mg PO DAILY
dicyclomine 10 mg Capsule
10 mg PO ACHS
darifenacin 7.5 mg Tablet Extended Release 24 Hr
7.5 mg PO Q48H
amiodarone 200 mg Tablet
200 mg PO DAILY
Xarelto 20 MG tablet
20 mg PO QPM
Discontinued
spironolactone 25 mg Tablet
25 mg PO QPM
Entresto 24-26 mg Tablet
1 tab PO BID
metoprolol succinate 50 MG tablet extended release 24 hr
50 mg PO BID
Discharge Orders:
Discharge Patient (As Directed); Ordered 03/19/25
Ordered By: Anup Mares
Discharge Date and Time
Print Language: JAPANESE
--- NOTE | 2025-03-19 11:22 | CM ---
CM reviewed chart and noted dc order
Discussion with nursing- indep in room
Bedside meeting with pt- plan for home no needs
Dtr has been contacted for transport home
IMM verbally reviewed- copy provided
Discharge Disposition- home, no needs, dtr transport
--- NOTE | 2025-03-19 12:01 | PTCARENOTE ---
dcinstructions provided. med clarifications tiger texted to cards w/ response. pt understands dc instructions. awaiting for transport via daughter.
== END 2025-03-19 13:35 | disposition home or self-care (01) | DRG 291 ==
LOC: IMU 16:57
PROVIDERS: Emergency Medicine; Hospitalist; Nurse Practitioner Family; ADMITTING PHYSICIAN Hospitalist; ATTENDING PHYSICIAN Internal Medicine; EMERGENCY PHYSICIAN Emergency Medicine; FAMILY PHYSICIAN Family Medicine; OTHER PHYSICIAN Internal Medicine Cardiovascular Disease
DX: I13.0 Hypertensive heart and chronic kidney disease with heart failure and stage 1 through stage 4 chronic kidney disease, or unspecified chronic kidney disease (principal); I50.23 Acute on chronic systolic (congestive) heart failure; I48.19 Other persistent atrial fibrillation; N17.9 Acute kidney failure, unspecified; I42.8 Other cardiomyopathies; E78.00 Pure hypercholesterolemia, unspecified; N32.81 Overactive bladder; K21.9 Gastro-esophageal reflux disease without esophagitis; I95.9 Hypotension, unspecified; E05.90 Thyrotoxicosis, unspecified without thyrotoxic crisis or storm; E87.5 Hyperkalemia; N18.9 Chronic kidney disease, unspecified; Z95.0 Presence of cardiac pacemaker; Z79.01 Long term (current) use of anticoagulants; Z88.1 Allergy status to other antibiotic agents; Z88.5 Allergy status to narcotic agent; Z88.0 Allergy status to penicillin; Z88.8 Allergy status to other drugs, medicaments and biological substances
CPT/HCPCS: 71046; 80048; 80053; 80061; 83036; 83880; 84443; 84484; 85025; 85027; 93005; 93306; 96374; 99285

== ENCOUNTER → 2025-03-24 10:58 | Outpatient (REF) | payer MEDICARE, OTHER, SELFPAY ==
[2025-03-24 11:44] LABS: Hematocrit 34.7 % (37.0-47.0); Hemoglobin 11.2 g/dL (12.0-16.0); Mean Corp Hgb Conc. 32.3 g/dL (33.0-37.0); Mean Corpuscular Volume 91.1 fL (81.0-99.0); Nucleated Red Blood Cells % 0 %; Platelet Count 253 10^3/uL (130-400); Red Cell Dist. Width 14.6 % (11.5-14.5)
[2025-03-24 11:53] LABS: INR 2.49; PT 27.0 Sec (11.4-14.6)
[2025-03-24 12:29] LABS: ALT (SGPT) 77 U/L (0-35); AST (SGOT) 43 U/L (14-36); Albumin 4.7 g/dl (3.5-5.0); Alkaline Phosphatase 112 U/L (38-126); Blood Urea Nitrogen 51 mg/dl (7-17); Calcium 9.4 mg/dl (8.4-10.2); Carbon Dioxide 22 mmol/L (22-30); Chloride 108 mmol/L (98-107); Glucose 102 mg/dl (70-99); Magnesium 2.1 mg/dl (1.6-2.3); Potassium 4.3 mmol/L (3.5-5.1); Sodium 139 mmol/L (135-145); Total Protein 7.3 g/dl (6.3-8.2); eGFR 29.94
== END ==
LOC: SDSPAT 10:58
PROVIDERS: ATTENDING PHYSICIAN Internal Medicine Cardiovascular Disease; FAMILY PHYSICIAN Family Medicine; OTHER PHYSICIAN Internal Medicine Cardiovascular Disease
DX: I48.91 Unspecified atrial fibrillation (principal)
CPT/HCPCS: 36415; 80053; 83735; 85025; 85610; 86850; 86900; 86901; 93005

== ENCOUNTER 2025-04-06 07:52 | Day surgery (SDC) | payer MEDICARE, OTHER, SELFPAY ==
[2025-03-24 11:17] VITALS: BMI 31.9
[2025-04-06] VITALS (17 sets, daily range): BP systolic 94–119; BP diastolic 45–77; BMI 28.9
[2025-04-06 11:46] LABS: ACT-LR - POC 326 Seconds (116-155)
[2025-04-06 12:08] LABS: ACT-LR - POC 372 Seconds (116-155)
[2025-04-06] MEDS: ANESTHETIC LOZENGE 1 LOZENGE PO ×3 (13:31→21:19)
--- NOTE | 2025-04-06 13:33 | ITS.CL.ABL ---
Monitor Worker - Ablation
Ablation
Procedure Report:
ELECTROPHYSIOLOGY ABLATION STUDY
DATE:: April 06, 2025�����������������������������REFERRING: Dr. Camilo Shaw
INDICATION: Persistent supraventricular tachycardia in the form of atrial fibrillation.� Reduced ejection fraction with atrial fibrillation and recent heart failure admission.
HISTORY: See H and P.��As above
ANTIARRHYTHMIC DRUG: Amiodarone
PRE-PROCEDURE VICKY: No intracardiac thrombus
PRESENTING RHYTHM: Atrial fibrillation
'TIME-OUT':��called and confirmed.
SEDATION/ANESTHESIA:��provided via the anesthesia department using general anesthesia (LMA).
INTRAVENOUS/ARTERIAL ACCESS:
Right femoral venous -8Fr
Left femoral venous - 8 Fr, 6 Fr
Knciha-on-gxedl suture bilaterally
Ultrasound guidance for bilateral femoral vein access was utilized by me to obtain access with demonstration of normal anatomy
CHADS-VASC Score:
HAS-Bled Score
PROCEDURE:
1.��A decapolar CS catheter was placed within the CS for mapping and pacing.��This was also used as the reference catheter for the 3-D map.
2. The intracardiac ultrasound catheter was positioned in the RA to identify the FO for targeting of transseptal puncture, assist��in identification of the pulmonary vein ostia, monitoring pre and post ablation pulmonary vein flow velocities,
monitoring for 'bubble' formation during RF application as a sign of thermal injury,��and to monitor for pericardial effusion during mapping and ablation procedure.���Left atrial size, LV ejection fraction, and pulmonary vein flows were monitored
pre and post ablation procedure. The other valves were inspected and found to be free of significant regurgitation or stenosis.
3.��Half of the calculated heparin bolus was administered prior to the first transeptal puncture.��Transseptal puncture was performed to diagnose RA and LA pressure so that safetey of LA mapping and ablation could be further assessed, and to access
the left atrium and pulmonary veins for mapping and ablation.��This entailed advancing an 8 Fr SL-1 sheath with dilator into the superior vena cava and withdrawing both (monitoring intracardiac ultrasound, fluoroscopy and tip pressure) with the tip
oriented toward the atrial septum.��The fossa ovalis was engaged (indicated by sudden displacement of the sheath tip as well as tenting of the fossa seen on intracardiac ultrasound).��Left atrial access required a pass with the Brockenbrough needle
extended.��Left atrial catheter position was confirmed by pressure monitoring (RA mean pressure 6 mm Hg and LA mean presure 18 mm Hg), LA saturation (99%),��as well as fluoroscopy.��The sheath was advanced over the dilator and positioned in the left
atrium.��This procedure was repeated for the Agilis sheath.��The remainder of the calculated heparin bolus was administered and heparin was
infused to maintain ACT at 300 -350 seconds throughout the case.
4.��RA pacing was performed via the proximal decapolar poles and LA pacing was performed via the distal decapolr poles.
5. A quadrapolar catheter was first positioned at the His position for His Bundle recording which was tagged via the 3-D Navex sytem, and then passed to the RVA for RV pacing and recording.
6. The lattice catheter was placed in each of the LIPV, LSPV, RSPV and the RIPV.��
7.��Next, a 3-D map was created using Navex.���A 3-D reconstructed CT image was compared to the 3-D Navex map to assist in anatomic interpretation, mapping and ablation.��The CT image and the NavX image were fused.
8. Signal was noted on the appendage side of the ligament of Maxime along its length. On the posterior side and the left superior pulmonary vein the left inferior pulmonary veins there was entrance and exit block in sinus rhythm. There was
reconnection of the posterior wall at the roof outside the right superior pulmonary vein and the floor outside the right inferior pulmonary vein. We addressed the signal on the appendage side of ligament of Maxime rendering the left veins
isolated and performed a posterior wall box lesion set with roofline and floor line and posterior wall substrate rendering the posterior wall electrically and excitable. After cardioversion to sinus rhythm entrance and exit block was confirmed in
all 4 pulmonary veins as well as the posterior wall from roof to floor. Additional extrapulmonary vein substrate was addressed at the dome of the left atrium anteriorly and the floor of the left atrium leaving a healthy Cornell of 1 cm away from the
AV ring given the position of the coronary arteries. EPS with stimulation after this ablation could not induce any other tachyarrhythmia. Of note the patient had prior right atrial ablation lesions at prior procedures.
9. Stable device parameters. Of note and as above the right ventricular lead is positioned within the middle cardiac vein inadvertently as the middle cardiac vein has a separate ostium from the body of the coronary sinus where the LV lead travels.
As this lead is chronic we will leave the lead in place and the RV lead is programmed at subthreshold. The patient has subjective and objective symptoms of stimulation when the RV lead is paced at high output.
TOTAL FLOURO TIME: 12.1 minutes
TOTAL RF DURATION: 0 minutes
REVERSAL OF HEPARIN: 35 mg of protamine, slow IV administration
COMPLICATIONS:
None
Intracardiac US shows no pericardial effusion post ablation.
SUMMARY:��
Complex left atrial mapping and ablation.
Of note the patient's right ventricular lead enters a separate ostium to the middle cardiac vein is fixated apically in the middle cardiac vein. The lead and device are chronic as noted. The left ventricular lead enters the coronary sinus at a
distance away from the separate middle cardiac vein ostia and is in stable position in the high lateral position. This may explain the patient's noted feeling of sharp pain with right ventricular pacing intermittently.
Otherwise reisolation of the left atrial posterior wall, reisolation of the left veins along the ligament of Maxime, extrapulmonary vein substrate we addressed in the LA floor, LA dome, base of the left atrial appendage and posterior wall as above.
RECOMMENDATIONS:
1. Admit to monitored bed.
2. Resume anticoagulation
3.��Will continue to keep the patient programmed at DDDR 60-130 with the RV lead at subthreshold and the LV lead has good capture threshold at less than 2 V at 1.5 ms.
4.��Amiodarone for 3 to 6 months and will maintain the patient's heart failure medications at current dose given the wedge of 18 noted today.
Copy to: Dr. Camilo Shaw
--- NOTE | 2025-04-06 15:29 | CM ---
Reviewed chart. Met with Mrs. Samson to review discharge plans. She states prior to admission she resides alone in a two story townhouse with two steps to enter. She states she has a full bathroom and bedroom on each floor. She states prior to
admission she was independent with ambulation and adls. She states she does not have any DME in the home. She states she has a prescription plan and uses [facility]. The discharge plan is to return home when medically stable.
[2025-04-06] MEDS: XARELTO 15 MG PO (18:01)
[2025-04-06] MEDS: ZYRTEC 10 MG PO (18:01)
[2025-04-06] MEDS: LIPITOR 10 MG PO (18:01)
--- NOTE | 2025-04-06 18:38 | PTCARENOTE ---
Pt received from recovery area post PVI. Pt c/o slight sore throat and mild cough, given cepacol. Bilateral femoral vein sites with dry and intact dressings, figure of eight sutures removed without problem, no bleeding or hematoma noted. Pt OOB to
bathroom, voiding without difficulty. Telemetry shows 100% vent. paced rhythm at a rate of 60.
[2025-04-06] MEDS: BENTYL 10 MG PO (21:19)
--- NOTE | 2025-04-07 01:13 | PTCARENOTE ---
Assumed care of the pt @ 1900. Pt is AAOx3 Paced on the monitor VSS b/l groin site dressing c/d/i. Call moncada within reach.
[2025-04-07 04:15] VITALS: BP 95/48
[2025-04-07 04:51] LABS: Hematocrit 30.6 % (37.0-47.0); Hemoglobin 10.0 g/dL (12.0-16.0); Mean Corp Hgb Conc. 32.7 g/dL (33.0-37.0); Mean Corpuscular Volume 89.5 fL (81.0-99.0); Platelet Count 235 10^3/uL (130-400); Red Cell Dist. Width 14.9 % (11.5-14.5)
[2025-04-07] MEDS: TYLENOL 650 MG PO (04:52)
[2025-04-07 04:56] VITALS: BMI 29.3
[2025-04-07] MEDS: ANESTHETIC LOZENGE 1 LOZENGE PO (04:59)
[2025-04-07 05:16] LABS: Blood Urea Nitrogen 28 mg/dl (7-17); Calcium 8.7 mg/dl (8.4-10.2); Carbon Dioxide 19 mmol/L (22-30); Chloride 112 mmol/L (98-107); Estimated Creatinine Clearance 43 ml/min; Glucose 114 mg/dl (70-99); Magnesium 2.3 mg/dl (1.6-2.3); Potassium 4.9 mmol/L (3.5-5.1); Sodium 138 mmol/L (135-145); eGFR 45.48
[2025-04-07 07:09] VITALS: BP 112/51
[2025-04-07] MEDS: TOPROL XL 25 MG PO (09:18)
[2025-04-07] MEDS: ENTRESTO 24 MG/26 MG 1 TAB PO (09:18)
[2025-04-07] MEDS: PROTONIX 40 MG PO (09:18)
[2025-04-07] MEDS: PACERONE 200 MG PO (09:18)
[2025-04-07] MEDS: LASIX 20 MG PO (09:19)
[2025-04-07] MEDS: BENTYL 10 MG PO (09:20)
[2025-04-07] MEDS: DETROL LA 2 MG PO (09:20)
--- NOTE | 2025-04-07 09:36 | W.PN.CARDCBS ---
Addendum entered and electronically signed by Chris Becerra MD 04/07/25 09:57:
patient seen and examined
SR on tele overnight
LA pressure noted to be 18mHg at time of LA access.
Feels well this am
Agree with GOLD BLOWER note and assessment
Agree with GOLD BLOWER plan
exam:
Sr on tele
jvp 6
cor regular
lungs ctab
bilateral groins cdi
aao x 3
non focal neurologically
Impression:
Symptomatic persistent Afib
prior PVI 2014, 2016
post redo PVI 04/06/25
chronic HFmrEF 45%, recent admission 02/2025
CKD 3a-b
Hyperthyroidism
[facility] PNE[facility]-P 2018
orthostatic hypotension
HTN
HLD
GERD
SDH secondary to fall post wendy holes
chronic back pain
Plan:
CrCl less than 50 will decrease Xarelto to 15mg daily
continue Amiodarone for 3-6 months, poss d/c at f/u apt with me
HF - well compensated, will continue PO Lasix, Entresto dosing based on BP, metoprolol xl 25
will check TFT, was scheduled to have done outpt for endocrinology, will give pt results when completed
Activity restrictions reviewed
encouraged C&DB
f/u Dr. Becerra in 3 mo
f/u Dr. Shaw at [facility] as scheduled
home today
Original Note:
Today's Communication / Plan
-
post ablation stable for d/c home today
Impression / Plan
-
PCP: Rochelle Guadarrama MD
CDY: Camilo Shaw MD
Impression:
Symptomatic persistent Afib
prior PVI 2014, 2016
post redo PVI 04/06/25
chronic HFmrEF 45%, recent admission 02/2025
CKD 3a-b
Hyperthyroidism
[facility] PNEUMAT[facility]-P 2018
orthostatic hypotension
HTN
HLD
GERD
SDH secondary to fall post ewndy holes
chronic back pain
Plan:
post ablation feels good
tele AV dual paced, occ PVC's
groins stable
CrCl less than 50 will decrease Xarelto to 15mg daily, unsure baseline should have repeat labs in 2-4 weeks
continue Amiodarone for 3-6 months, poss d/c at f/u apt with Dr. Becerra
HF - well compensated, will continue PO Lasix, Entresto dosing based on BP, metoprolol xl 25
will check TFT, was scheduled to have done outpt for endocrinology, will give pt results when completed
Activity restrictions reviewed
encouraged C&DB
f/u Dr. Becerra in 3 mo
f/u [facility] as scheduled
home today
Progress Note - Vending Route Servicer
Subjective
Date of Service: April 07, 2025
denies cp, sob
Objective
Labs:
04/07/25 04:26
04/07/25 04:26
Labs
Hgb 10.0 g/dL (12.0-16.0) L 04/07/25 04:26
Hct 30.6 % (37.0-47.0) L 04/07/25 04:26
Plt Count 235 10^3/uL (130-400) 04/07/25 04:26
Sodium 138 mmol/L (135-145) 04/07/25 04:26
Potassium 4.9 mmol/L (3.5-5.1) 04/07/25 04:26
BUN 28 mg/dl (7-17) H 04/07/25 04:26
Creatinine 1.2 mg/dL (0.6-1.0) H 04/07/25 04:26
Glucose 114 mg/dl (70-99) H 04/07/25 04:26
Vital Signs and I&O:
Vital Signs
Temp Pulse Resp BP Pulse Ox
97.9 F 64 18 112/51 98
04/07/25 07:11 04/07/25 08:00 04/07/25 07:11 04/07/25 09:18 04/07/25 09:15
Vital Signs
Temp Pulse Resp BP Pulse Ox
97.9 F 64 18 112/51 98
04/07/25 07:11 04/07/25 08:00 04/07/25 07:11 04/07/25 09:18 04/07/25 09:15
Intake & Output
04/05/25 04/06/25 04/07/25 04/08/25
06:59 06:59 06:59 06:59
Intake Total 1350 / 1350
Balance 1350 / 1350
Physical Exam
Physical Exam
NAD, AOX3
S1, S2, RRR
scattered crackles b/l bases, non labored, clears with cough
SNTND bsx4
b/l groins c/d/i no HT< soft
No LE edema
[2025-04-07 10:15] VITALS: BP 99/58
[2025-04-07 10:26] LABS: Free T3 2.33 pg/ml (2.77-5.27)
--- NOTE | 2025-04-07 11:16 | CM ---
Reviewed chart. Mrs. Samson discharged home today. Prior to admission she resides alone in a two story townhouse with two steps to enter. She has a full bathroom and bedroom on each floor. Prior to admission she was independent with ambulation and
adls. She does not have any DME in the home. She has a prescription plan and uses [facility]. The discharge plan is to return home when medically stable.
--- NOTE | 2025-04-07 11:25 | PTCARENOTE ---
Pt denies nay discomfort. Pt seen by Janina Harper, HERMELINDA and . Temetry and IV device removed. Discharge instructions reviewed with pt regarding activity and driving guidelines, wound care, medications and their possible side effects, reporting
cares and concerns and follow up appt's. Very good understanding verbalized. Pt escorted out via wheelchair and discharged to home.
--- NOTE | 2025-04-07 11:35 | W.DS.TRANS ---
DC Summary - Home Care Chaplain
-
Discharge Instructions:
Sleep Apnea Risk Intermediate
Discharge Diagnosis/Procedures Atrial fibrillation post ablation
Diet Low Cholesterol,Low Sodium
Driving Restrictions No driving for 24 hours
Blood Work Check BMP in 2 weeks
Specialty Instructions Weigh Daily
Instructions:
Stand-Alone Forms: DC Instructions- Cath/EP Lab
Changes to Home Medications: Yes
Discharge Medications:
DC Medications w/original date entered in [employer]
atorvastatin 10 mg tablet 10 mg PO QPM High Cholesterol 07/23/15
cetirizine 10 mg tablet 10 mg PO QPM Allergies 07/23/15
furosemide 20 mg tablet 20 mg PO DAILY 07/23/15
amiodarone 200 mg tablet 200 mg PO DAILY Arrhythmia 03/16/25
darifenacin 7.5 mg tablet,extended release 24 hr 7.5 mg PO MOWEFR Urinary Issue 03/16/25
dicyclomine 10 mg capsule 10 mg PO ACHS Gastrointestinal Issue 03/16/25
omeprazole 40 mg capsule,delayed release 40 mg PO DAILY Gastrointestinal Issue 03/16/25
sucralfate 100 mg/mL oral suspension (Carafate) 10 ml PO PRN PRN GERD 03/16/25
metoprolol succinate 25 mg tablet,extended release 24 hr 25 mg PO DAILY #30 tabs 03/19/25
Probiotic 1 cap PO DAILY 03/23/25
cranberry extract 650 mg capsule (Theracran) 650 mg PO QPM 03/23/25
diphenhydramine 25 mg-acetaminophen 500 mg tablet (Tylenol PM Extra Strength) 1 tab PO HS PRN insomnia 03/23/25
melatonin 5 mg tablet 5 mg PO HS 03/23/25
desoximetasone 0.25 % topical cream 1 applic topical BID 04/06/25
ketoconazole 2 % topical cream 1 applic topical DAILY 04/06/25
multivitamin 1 tab PO DAILY 04/06/25
sacubitril 24 mg-valsartan 26 mg tablet (Entresto) 1 tab PO BID 04/06/25
rivaroxaban 15 mg tablet (Xarelto) 15 mg PO QPM #90 tabs 04/07/25
Home Medication Changes
decrease xarelto dose
Pending Results: No
== END 2025-04-07 11:10 | disposition home or self-care (01) ==
LOC: CATH 07:52
PROVIDERS: Nurse Practitioner Adult Health; ATTENDING PHYSICIAN Internal Medicine Cardiovascular Disease; FAMILY PHYSICIAN Family Medicine; OTHER PHYSICIAN Internal Medicine Cardiovascular Disease
DX: I48.19 Other persistent atrial fibrillation (principal); I13.0 Hypertensive heart and chronic kidney disease with heart failure and stage 1 through stage 4 chronic kidney disease, or unspecified chronic kidney disease; E78.5 Hyperlipidemia, unspecified; I42.8 Other cardiomyopathies; I34.0 Nonrheumatic mitral (valve) insufficiency; R55 Syncope and collapse; D64.9 Anemia, unspecified; M19.90 Unspecified osteoarthritis, unspecified site; R26.9 Unspecified abnormalities of gait and mobility; R42 Dizziness and giddiness; Z79.01 Long term (current) use of anticoagulants; E05.90 Thyrotoxicosis, unspecified without thyrotoxic crisis or storm; K21.9 Gastro-esophageal reflux disease without esophagitis; Z79.899 Other long term (current) drug therapy; Z88.0 Allergy status to penicillin; Z88.1 Allergy status to other antibiotic agents; Z88.5 Allergy status to narcotic agent; Z88.8 Allergy status to other drugs, medicaments and biological substances; G89.29 Other chronic pain; I47.10 Supraventricular tachycardia, unspecified; I49.3 Ventricular premature depolarization; I50.22 Chronic systolic (congestive) heart failure; I95.1 Orthostatic hypotension; N18.31 Chronic kidney disease, stage 3a
CPT/HCPCS: C1894; C1733; C1766; C1892; C1759; 80048; 83735; 84439; 84443; 84481; 85027; 85347; 93005; 93656; 93657; C1730

== ENCOUNTER 2025-07-03 07:04 | Day surgery (SDC) | payer MEDICARE, OTHER, SELFPAY ==
[2025-07-03 08:05] VITALS: BMI 30.3
--- NOTE | 2025-07-03 08:59 | ITS.CL.CARDI ---
Assistant Controller - Cardioversion
Cardioversion
Procedure Report:
Date of Procedure: 07/03/25
Procedure: Cardioversion
Indication: Symptomatic atrial fibrillation
Performing Physician: Cristel Thacker DO [facility]
[place] device interrogated before and after cardioversion
Xarelto anticoagulation confirmed appropriate
Technique: The patient was brought to the holding area. Signed informed consent was obtained. A time out was called and performed. The patient was anesthetized by the anesthesia service. Anticoagulation status was reviewed and appropriate. R2 pads
were placed anteriorly and posteriorly. A200 J synchronized biphasic shock restored AV dual paced rhythm without complications. Rhythm confirmed by twelve-lead EKG and device interrogation. There were no complications.
Conclusion: Uncomplicated cardioversion from atrial fibrillation to AV dual paced rhythm
Recommendation: Routine post cardioversion care. Continue usp anticoagulation.
== END 2025-07-03 09:15 | disposition home or self-care (01) ==
LOC: CATH 07:04
PROVIDERS: ATTENDING PHYSICIAN Internal Medicine Cardiovascular Disease; FAMILY PHYSICIAN Family Medicine; REFERRING PHYSICIAN Internal Medicine Cardiovascular Disease
DX: I48.19 Other persistent atrial fibrillation (principal); Z79.01 Long term (current) use of anticoagulants; I34.0 Nonrheumatic mitral (valve) insufficiency; I50.22 Chronic systolic (congestive) heart failure; Z79.899 Other long term (current) drug therapy; Z79.4 Long term (current) use of insulin
CPT/HCPCS: 92960; 93005